=== PATIENT | female | born 1960 ===

== ENCOUNTER → 2024-08-13 | Outpatient (CLI) | payer BC ==
[2024-08-13 20:20] LABS: Free Thyroxine 1.24 ng/dL (0.70-1.60)
[2024-08-13 21:03] LABS: Triiodothyronine, Free 2.84 pg/mL (2.18-3.98)
[2024-08-14 13:46] LABS: Percent Saturation 30.3 % (15.0-50.0)
== END | disposition home or self-care (01) ==
LOC: LAB SHORT 18:42
PROVIDERS: Nurse Practitioner Family
DX: E53.8 Deficiency of other specified B group vitamins (principal); D64.9 Anemia, unspecified; R73.9 Hyperglycemia, unspecified; R53.82 Chronic fatigue, unspecified
CPT/HCPCS: 82607; 82728; 82746; 83036; 83540; 83550; 84439; 84481

== ENCOUNTER → 2024-09-24 | Outpatient (CLI) | payer MEDICARE ==
[2024-09-24 20:15] LABS: C-REACTIVE PROTEIN, EXT RANGE <0.290 mg/dL (0.000-0.300)
[2024-09-26 21:23] LABS: ANTI-NUCLEAR AB ANA,IGG ELISA None Detected (None Detected)
[2024-09-27 06:23] LABS: RHEUMATOID FACTOR <10 IU/mL (0-14)
== END ==
LOC: LAB 19:15 → LAB SHORT 19:15
PROVIDERS: Nurse Practitioner Family
DX: E55.9 Vitamin D deficiency, unspecified (principal); R53.82 Chronic fatigue, unspecified
CPT/HCPCS: 82306; 84443; 86038; 86140; 86431